=== PATIENT | male | born 1990 | race Two or more races ===

== ENCOUNTER 2018-12-20 01:50 | Emergency (ER) | payer OTHER ==
[~2018-12-20] VITALS: Ht 180.3 cm; Wt 88.5 kg
[2018-12-20] MEDS ORDERED: NALOXONE PREFILLED SYRINGE 2 MG/2 ML SYRINGE ONE (01:56)
--- NOTE | 2018-12-20 02:00 | NUR ---
[facility] REPORTING DRUG OD ON POSSIBLE HEROIN. PT APEARS DISORIENTED , AGITATED AND UNABLE TO STAY STILL. PT WAS TRANSFERRED TO 5. SATTING 70s ON R/A. WAS PLACED ON A NON-REBREATHER MASK . AT THE BED SIDE. PER PARAMEDICS PT HAS ALREADY RECEIVED 2 DOSED ON NARCAN SPRAY ON THE FIELD.
[2018-12-20] MEDS ORDERED: HALOPERIDOL LACTATE INJ 5 MG/ML VIAL ONE (02:19)
[2018-12-20] MEDS ORDERED: LORAZEPAM INJ 2 MG/ML VIAL ONE (02:19)
[2018-12-20] MEDS ORDERED: IV NS 0.9% 1,000 ML BAG IV ONE (02:30)
[2018-12-20] MEDS ORDERED: NALOXONE HCL 2 MG in IV D5W 245 ML IV PRN (02:30)
[2018-12-20] MEDS ORDERED: ONDANSETRON HCL/PF 4 MG/2 ML VIAL IVP ONE (02:30)
[2018-12-20] MEDS ORDERED: LORAZEPAM INJ 2 MG/ML VIAL IVP ONE (02:30)
[2018-12-20] MEDS ORDERED: NALOXONE PREFILLED SYRINGE 2 MG/2 ML SYRINGE IV ONE (02:30)
[2018-12-20 02:37] LABS: BASOPHILS % (AUTO) 0.4 % (0.0-2.0); EOSINOPHILS % (AUTO) 1.9 % (0.0-6.0); HEMATOCRIT 43 % (39-51); HEMOGLOBIN 14.6 g/dL (13.5-17.5); LYMPHOCYTES # (AUTO) 0.4 /CMM (0.8-4.8); LYMPHOCYTES % (AUTO) 3.7 % (20.0-44.0); MEAN CORPUSCULAR HGB CONC 34 g/dl (31.0-36.0); MEAN CORPUSCULAR VOLUME 90 fL (80-96); MONOCYTES # (AUTO) 0.3 /CMM (0.1-1.30); MONOCYTES % (AUTO) 2.6 % (2.0-12.0); NEUTROPHILS # (AUTO) 9.2 /CMM (1.8-8.9); NEUTROPHILS % (AUTO) 91.4 % (43.0-81.0); PLATELET COUNT (AUTO) 175 /CMM (150-450); RED BLOOD CELL COUNT(AUTO) 4.79 MIL/uL (4.5-6.0); WHITE BLOOD COUNT (AUTO) 10.1 K/uL (4.3-11.0)
[2018-12-20 02:43] LABS: CALCIUM, SERUM 7.7 mg/dL (8.5-10.1); CREATININE 1.5 mg/dL (0.6-1.3); POTASSIUM 3.5 mmol/L (3.5-5.1)
[2018-12-20 02:48] LABS: ALBUMIN 4.2 g/dL (3.4-5.0); BILIRUBIN,DIRECT 0.1 mg/dL (0.0-0.2); BILIRUBIN,TOTAL 0.2 mg/dL (0.2-1.0)
[2018-12-20 02:49] LABS: SALICYLATE 0.7 mg/dL (2.8-20.0)
[2018-12-20] MEDS ORDERED: HALOPERIDOL LACTATE INJ 5 MG/ML VIAL IM ONE (03:00)
--- NOTE | 2018-12-20 03:00 | NUR ---
PT IN BED AROUSES TO TOUCH. REMAINED ON NON- BREATHER MASK. NO DISTRESS. VSS. WILL CONT TO MONITOR ,
[2018-12-20 03:29] LABS: APPEARANCE,URINE Clear (CLEAR); BILIRUBIN,URINE Negative (NEGATIVE); BLOOD, URINE Small Ery/uL (NEGATIVE); COLOR,URINE Yellow (YELLOW); KETONES,URINE Negative (NEGATIVE); LEUKOCYTE ESTERASE ,URINE Negative (NEGATIVE); NITRITE, URINE Negative (NEGATIVE); PH,URINE 5.5 (5.0-8.0); PROTEIN,URINE 100 mg/dl (NEGATIVE); UGLUCOSE Negative (NEGATIVE); UROBILINOGEN,URINE 0.2 EU/dL (0.2)
--- NOTE | 2018-12-20 03:33 | NUR ---
[facility]MG CANCELLED BY
[2018-12-20 03:40] LABS: BACTERIA,URINE None seen /HPF (None Seen); RBC,URINE 0-2 /HPF (0-2); SQUAMOUS EPITHELIAL CELL,UR Few /HPF (None Seen); WBC,URINE 0-2 /HPF (0-3)
--- NOTE | 2018-12-20 04:06 | NUR ---
PT SLEEPING. AROUSES TO TOUCH. WAS PLACED ON SYMPLE MASK AT 5LPM . SATTING 96%. NO DISTRESS NOTED. VSS. WILL CONT TO MONITOR ,
--- NOTE | 2018-12-20 07:45 | NUR ---
AROUSABLE TO NAME, NO RESP DISTRESS NOTED. VITALS STABLE
--- NOTE | 2018-12-20 08:12 | NUR ---
LEONEL KRISHNAN AT BEDSIDE FOR EVAL.
--- NOTE | 2018-12-20 08:27 | NUR ---
Social service consult requested by Dr. Sr for ETOH and drug use. Pt. is a 28 year old male who was brought to [facility] ED status post overdose. Apparently a bystander called EMS after they gave him Narcan for a heroin overdose. SW met with pt. bedside. Pt. is alert and oriented x 3. Pt. has tattoos on his chest. Pt. appears lethargic. Pt. is cooperative and able to give meaningful information. Pt. states he resides with his family at [address] [place] [address] in [place]. His emergency contact is his mother Lucy Carlson . Pt. doesn't not remember when and why he is at the hospital. Pt.states he drinks 6 packs of beer and a pint of tequila daily. Pt. declined drug use, however his toxicology is positive for opiates. Pt. has been to [facility] in the past but cannot remember when. Pt. is currently declined to go to an alcohol treatment center but is willing to get referrals and information on AA meetings. Pt. denies suicidal and homicidal ideations and visual/auditory hallucinations. The following drug/alcohol treatment programs where provided to the pt: [facility], ; [facility] Substance Abuse Hotline and [facility] ; AA meetings Hotline and [facility] AA meeting . Pt. will be provided with a TAP card upon discharge. CECILLE Mccallum and Dr. Sr have been updated with pt's discharge plan.
--- NOTE | 2018-12-20 08:37 | NUR ---
PATIENT A/OX4, UNABLE TO RECALL WHAT HAPPENED. AMBULATORY WITH STEADY GAIT. DENIES SI/HI. NEEDS ATTENDED. FOOD AND WATER PROVIDED. NO DISTRESS NOTED. IV removed. Catheter intact and site benign. Pressure and 4x4 applied to site. No bleeding noted.
[2018-12-20 08:54] VITALS: BP 129/77
--- NOTE | 2018-12-20 08:54 | NUR ---
Patient discharged to home in stable condition. Written and verbal after care instructions given. Patient verbalizes understanding of instruction. Tap Card provided.
== END 2018-12-20 08:55 | disposition home or self-care (01) ==
LOC: EDBD 01:50 → ER 01:50
DX: T40.1X1A Poisoning by heroin, accidental (unintentional), initial encounter (principal); F19.10 Other psychoactive substance abuse, uncomplicated; R45.1 Restlessness and agitation; R00.0 Tachycardia, unspecified; F11.10 Opioid abuse, uncomplicated; Y92.89 Other specified places as the place of occurrence of the external cause
CPT/HCPCS: 36415; 80048; 80076; 80305; 80307; 80329; 81001; 85025; 93005; 96374; 96375; 99284; G0480; J1630; J2060; J2310; 81000-TC

== ENCOUNTER 2020-06-12 00:34 | Emergency (ER) | payer SELFPAY ==
[~2020-06-12] VITALS: Ht 180.3 cm; Wt 88.5 kg
--- NOTE | 2020-06-12 00:38 | NUR ---
PT [facility] AND [employer] C/O THREATING TO KILL HIMSELF AND HIS MOTHER. PT UNCOOPERATIVE AND WILL NOT ANSWER QUESTIONS. BREATHING EVENLY AND UNLABORED. PER EMS, PT WAS GIVEN VERSED BEFORE ARRIVAL. SKIN IS WARM, DRY, AND INTACT. PT ATTACHED TO [employer] PILOT AND POX. PT GIVEN BLANKET AND CALL LIGHT WITHIN REACH. WILL CONTINUE TO MONITOR.
[2020-06-12] MEDS ORDERED: HALOPERIDOL LACTATE INJ 5 MG/ML VIAL ONE (01:09)
[2020-06-12 01:26] LABS: BASOPHILS # (AUTO) 0.1 /CMM (0.0-0.2); BASOPHILS % (AUTO) 0.9 % (0.0-2.0); EOSINOPHILS % (AUTO) 0.3 % (0.0-6.0); HEMATOCRIT 44 % (39-51); HEMOGLOBIN 14.7 g/dL (13.5-17.5); LYMPHOCYTES % (AUTO) 17.9 % (20.0-44.0); MEAN CORPUSCULAR HGB CONC 34 g/dl (31.0-36.0); MEAN CORPUSCULAR VOLUME 89 fL (80-96); MONOCYTES # (AUTO) 0.2 /CMM (0.1-1.30); MONOCYTES % (AUTO) 4.4 % (2.0-12.0); NEUTROPHILS # (AUTO) 4.2 /CMM (1.8-8.9); NEUTROPHILS % (AUTO) 76.5 % (43.0-81.0); PLATELET COUNT (AUTO) 207 /CMM (150-450); RED BLOOD CELL COUNT(AUTO) 4.94 MIL/uL (4.5-6.0); WHITE BLOOD COUNT (AUTO) 5.5 K/uL (4.3-11.0)
[2020-06-12] MEDS ORDERED: HALOPERIDOL LACTATE INJ 5 MG/ML VIAL IM ONE (01:30)
--- NOTE | 2020-06-12 01:35 | NUR ---
PT WAS TAKEN TO CT
--- NOTE | 2020-06-12 01:42 | NUR ---
back from ct
[2020-06-12 02:12] LABS: CALCIUM, SERUM 8.9 mg/dL (8.5-10.1); CREATININE 1.2 mg/dL (0.6-1.3); POTASSIUM 4.8 mmol/L (3.5-5.1)
[2020-06-12 02:20] LABS: ALBUMIN 4.4 g/dL (3.4-5.0); BILIRUBIN,DIRECT 0.1 mg/dL (0.0-0.2); BILIRUBIN,TOTAL 0.3 mg/dL (0.2-1.0); TOTAL PROTEIN, SERUM 8.7 g/dL (6.4-8.2)
[2020-06-12] MEDS ORDERED: LIDOCAINE 2% JEL UROJET 10 ML MM ONE ×2 (03:23→03:30)
--- NOTE | 2020-06-12 03:34 | NUR ---
urine sent to lab
[2020-06-12 03:47] LABS: BILIRUBIN,URINE NEGATIVE (NEGATIVE); COLOR,URINE YELLOW (YELLOW); LEUKOCYTE ESTERASE ,URINE NEGATIVE (NEGATIVE); NITRITE, URINE NEGATIVE (NEGATIVE); PH,URINE 5.5 (5.0-8.0); PROTEIN,URINE TRACE mg/dl (NEGATIVE); UGLUCOSE NEGATIVE (NEGATIVE); UROBILINOGEN,URINE 0.2 EU/dL (0.2)
[2020-06-12 04:06] LABS: BACTERIA,URINE None seen /HPF (None Seen); MUCUS,URINE Few /LPF (None Seen); RBC,URINE 0-2 /HPF (0-2); SQUAMOUS EPITHELIAL CELL,UR Few /HPF (None Seen); WBC,URINE 0-2 /HPF (0-3)
--- NOTE | 2020-06-12 07:05 | NUR ---
gave report to KD Michaud for deb
--- NOTE | 2020-06-12 07:35 | NUR ---
assume pt care. resting in bed. verbally responsive. stable vitals. awaiting md peña.
--- NOTE | 2020-06-12 08:15 | NUR ---
karol reid at bedside for psych eval.
[2020-06-12 08:51] VITALS: BP 125/64
--- NOTE | 2020-06-12 08:51 | NUR ---
Patient discharged to home in stable condition. Written and verbal after care instructions given. Patient verbalizes understanding of instruction.
== END 2020-06-12 08:52 | disposition home or self-care (01) ==
LOC: ER 00:38
DX: F19.10 Other psychoactive substance abuse, uncomplicated (principal); F20.9 Schizophrenia, unspecified; F10.129 Alcohol abuse with intoxication, unspecified; Y90.7 Blood alcohol level of 200-239 mg/100 ml; Z20.822 Contact with and (suspected) exposure to COVID-19
CPT/HCPCS: 36415; 70450; 80048; 80076; 80299; 80307; 80320; 81001; 85025; 87426; 96372; 99285; C9803; J1630; J3490; G0480

== ENCOUNTER 2020-10-26 19:37 | Emergency (ER) | payer SELFPAY ==
[~2020-10-26] VITALS: Ht 172.7 cm; Wt 68.9 kg
[2020-10-26 19:37] VITALS: BP 128/62
[2020-10-26] MEDS ORDERED: LORAZEPAM INJ 2 MG/ML VIAL IV ONE (20:00)
[2020-10-26] MEDS ORDERED: IV NS 0.9% 1,000 ML BAG IV ONE (20:00)
--- NOTE | 2020-10-26 20:54 | NUR ---
PT REFUSED IV.
--- NOTE | 2020-10-26 22:16 | NUR ---
PT ASLEEP, NO ACUTE DISTRESS NOTED, RESP EVEN AND UNLABORED. CALL LIGHT WITHIN REACH. WILL CONTINUE TO MONITOR PT CLOSELY. SITTER AT BEDSIDE FOR PT SAFETY.
--- NOTE | 2020-10-26 22:26 | NUR ---
PT REQUESTED TO BE DISCHARGED, STATED HE FEELS BETTER. VSS. AMBULATORY WITH STEADY GAIT.
== END 2020-10-26 22:27 | disposition home or self-care (01) ==
LOC: ER 19:38
DX: F19.10 Other psychoactive substance abuse, uncomplicated (principal); F20.9 Schizophrenia, unspecified; F10.10 Alcohol abuse, uncomplicated; Y90.9 Presence of alcohol in blood, level not specified